=== PATIENT | male | born 1995 ===

== ENCOUNTER 2023-05-27 13:43 | Outpatient (CLI) | payer SELFPAY ==
[2023-05-27 14:33] LABS: Influenza A QL RT-PCR Negative (Negative); Influenza B QL RT-PCR Negative (Negative); SARS-CoV-2 RNA PCR Positive (Negative)
== END 2023-05-27 13:44 | disposition home or self-care (01) ==
LOC: CHSLAB 13:49
PROVIDERS: PCP Family Medicine; Visit Provider Family Medicine
DX: U07.1 COVID-19 (principal); R05.9 Cough, unspecified
CPT/HCPCS: 87636